=== PATIENT | male | born 1950 | race Caucasian/White ===

== ENCOUNTER 2020-01-22 17:58 | Emergency (ER) | payer OTHER ==
[~2020-01-22] VITALS: Ht 167.6 cm; Wt 59.0 kg
[2020-01-22 18:13] VITALS: BP 189/86
--- NOTE | 2020-01-22 18:20 | NUR ---
Patient in tent for covid precaution
--- NOTE | 2020-01-22 18:29 | NUR ---
69 y/o male from home c/o cough and headache since today. Pt states + covid contact in the home. RR even and unlabored, does not appear in distress. 2/10 aching pain. VSS
--- NOTE | 2020-01-22 18:48 | NUR ---
Covid swab collected and sent to lab.
[2020-01-22 19:00] VITALS: BP 189/86
--- NOTE | 2020-01-22 19:01 | NUR ---
Patient discharged with v/s stable. Written and verbal after care instructions given and explained. Patient alert, oriented and verbalized understanding of instructions. Ambulatory with steady gait. All questions addressed prior to discharge. ID band removed. Patient advised to follow up with PMD. Rx of Promethazine 6.25mg and Ibuprofen 400mg given. Patient educated on indication of medication including possible reaction and side effects. Opportunity to ask questions provided and answered.
== END 2020-01-22 19:01 | disposition home or self-care (01) ==
LOC: MED 17:58
DX: R03.0 Elevated blood-pressure reading, without diagnosis of hypertension (principal); E11.9 Type 2 diabetes mellitus without complications; Z20.828 Contact with and (suspected) exposure to other viral communicable diseases
CPT/HCPCS: 99283; U0003